=== PATIENT | female | born 1970 | race Caucasian/White ===

== ENCOUNTER 2024-05-22 13:12 | Inpatient (IN) | payer MEDICAID ==
[~2024-05-22] VITALS: Ht 165.1 cm; Wt 70.0 kg
[~2024-05-22 13:12] MED LIST: BIRTH CONTROL; LEVO50TA53; SERT100T
--- NOTE | 2024-05-22 13:17 | ED.PDOC ---
Sven. trauma (HPI) HPI Comments 53 year old female REMBERTO presents to the ED with chief complaint of syncope with fall. Patient reports that she had went to go to the bathroom at work, however, she started to feel lightheaded and next thing she knew, she woke up on the floor. EMS relays patient had lost consciousness and fell face first, injuring her forehead and causing a laceration. Patient states she currently has a headache and dizziness at this time. Patient denies any N/V, SOB, chest pain, numbness, or weakness. Time Seen by MD: 13:13 Primary Care Provider: MANN Reviewed notes: Nurses Notes, Clinical Science Liaison Notes, Medications, Allergies Allergies: Coded Allergies: NO KNOWN ALLERGIES (Unverified , 11/15/09) Home Meds Reported Medications [ Control] No Conflict Check 11/15/09 Sertraline Hcl (Zoloft) 100 Mg Tab 11/15/09 Levothyroxine Sodium (Levothroid) 50 Mcg Tab 11/15/09 Information Source: Patient, Emergency Med Personnel Mode of Arrival: EMS Severity: Moderate Timing: Hours Duration: Since onset Prehospital treatment: None Location: Head Location of laceration: Head Mechanism: Fall Past Medical History PAST MEDICAL HISTORY: Depression, Thyroid Surgical History: Tonsillectomy 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 TESTER MECHANIC Hx Family History Family History: Reviewed,noncontributory to illness Social History Smoker: Non-Smoker Alcohol: Denies ETOH Use Drugs: Denies Drug Use Lives In: Home Constitutional: denies: chills, diaphoresis, fatigue, fever, malaise, sweats, weakness, others EENTM: denies: blurred vision, double vision, ear bleeding, ear discharge, ear drainage, ear pain, ear ringing, eye pain, eye redness, hearing loss, mouth pain, mouth swelling, nasal discharge, nose bleeding, nose congestion, nose pain, photophobia, tearing, throat pain, throat swelling, voice changes, others Respiratory: denies: cough, hemoptysis, orthopnea, SOB at rest, shortness of breath, SOB with excertion, stridor, wheezing, others Cardiovascular: reports: lightheadedness, syncope; denies: chest pain, dizzy spells, diaphoresis, Dyspnea on exertion, edema, irregular heart beat, left arm pain, palpitations, PND, others Gastrointestinal: denies: abdomen distended, abdominal pain, blood streaked bowels, constipated, diarrhea, dysphagia, difficulty swallowing, hematemesis, melena, nausea, poor appetite, poor fluid intake, rectal bleeding, rectal pain, vomiting, others Genitourinary: denies: abnormal vagina bleeding, burning, dyspareunia, dysuria, flank pain, frequency, hematuria, incontinence, pain, , vagina discharge, urgency, others Neurological: reports: dizziness, headache; denies: fainting, left sided numbness, left sided weakness, numbness, paresthesia, pre-existing deficit, right sided numbness, right sided weakness, seizure, speech problems, tingling, tremors, weakness, others Musculoskeletal: denies: back pain, gout, joint pain, joint swelling, muscle pain, muscle stiffness, neck pain, others Integumetry: reports: laceration (forehead); denies: bruises, change in color, change in hair/nails, dryness, lesions, lumps, rash, wounds, others Allergic/Immunocompromised: denies: Difficulty Healing, Frequent Infections, Hives, Itching, others Hematologic/Lymphatic: denies: anemia, blood clots, easy bleeding, easy bruising, swollen glands, others Endocrine: denies: excessive hunger, excessive sweating, excessive thirst, excessive urination, flushing, intolerance to cold, intolerance to heat, unexplained weight gain, unexplained weight loss, others Psychiatric: denies: anxiety, bipolar disorder, depression, hopeless, panic disorder, schizophrenia, sleepless, suicidal, others All Other Systems: Reviewed and Negative Physical Exam General Appearance: Moderate Distress, Normal HEENT: Normal ENT Inspection, PERRL/EOMI Neck: Full Range of Motion, Non-Tender, Normal, Normal Inspection Respiratory: Chest Non-Tender, Lungs Clear, No Accessory Muscle Use, No Respiratory Distress, Normal Breath Sounds Cardiovascular: No Edema, No JVD, No Murmur, No Gallop, Normal Peripheral Pulses, Regular Rate/Rhythm Breast Exam: Deferred Gastrointestinal: No Organomegaly, Non Tender, No Pulsatile Mass, Normal Bowel Sounds, Soft Genitalia: Deferred Pelvic: Deferred Rectal: Deferred Extremities: No calf tenderness, Normal capillary refill, Normal inspection, Normal range of motion, Non-tender, No pedal edema Musculoskeletal : Apperance: Normal Neurologic: Alert, 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 Was a procedure done?: No Differential Diagnosis Multiple Trauma: Closed Head Injury, Abrasions X-Ray, Labs, Meds, VS Vital Signs Date Time Temp Pulse Resp B/P (MAP) Pulse Ox O2 Delivery O2 Flow Rate FiO2 05/22/24 15:20 77 18 100 Room Air 05/22/24 15:20 98.7 77 16 142/105 (117) 100 98.7 05/22/24 13:20 67 05/22/24 13:12 97.9 78 12 127/76 (93) 100 Lab Test 05/22/24 14:10 Range/Units White Blood Count 2.5 L 4.4-10.8 10^3/uL Red Blood Count 3.85 L 4.0-5.20 10^6/uL Hemoglobin 11.0 L 12.2-16.2 g/dL Hematocrit 33.2 L 36.0-46.0 % Mean Corpuscular Volume 86.2 80.0-100.0 fL Mean Corpuscular Hemoglobin 28.5 28.0-32.0 pg Mean Corpuscular Hemoglobin Concent 33.0 32.0-36.0 g/dL Red Cell Distribution Width 14.8 H 11.8-14.3 % Platelet Count 136 L 140-450 10^3/uL Mean Platelet Volume 8.9 6.9-10.8 fL Neutrophils (%) (Auto) 64.3 37.0-80.0 % Lymphocytes (%) (Auto) 18.0 10.0-50.0 % Monocytes (%) (Auto) 17.0 H 0.0-12.0 % Eosinophils (%) (Auto) 0.3 0.0-7.0 % Basophils (%) (Auto) 0.4 0.0-2.0 % Neutrophils # (Auto) 1.6 1.6-8.6 10 ^3/uL Lymphocytes # (Auto) 0.5 0.4-5.4 10 ^3/uL Monocytes # (Auto) 0.4 0-1.3 10 ^3/uL Eosinophils # (Auto) 0 0-0.8 10 ^3/uL Basophils # (Auto) 0 0-0.2 10 ^3/uL Nucleated Red Blood Cells 0.3 % Sodium Level 139 136-145 mmol/L Potassium Level 3.6 3.5-5.1 mmol/L Chloride Level 105 98-107 mmol/L Carbon Dioxide Level 26 20-31 mmol/L Anion Gap 8 5-15 Blood Urea Nitrogen 6 L 9-23 mg/dL Creatinine 0.88 0.550-1.02 mg/dL Glomerular Filtration Rate Calc 79 >90 mL/min BUN/Creatinine Ratio 6.8 L 10.0-20.0 Serum Glucose 102 74-106 mg/dL Calcium Level 9.1 8.7-10.4 mg/dL Troponin I High Sensitivity < 3 L </=34 ng/L Current Medications Medications (Trade) Dose Ordered Sig/Rubio Route Start Time Stop Time Status Last Admin Sodium Chloride 1,000 ml @ 1,000 mls/hr Q1H ONCE IV 05/22/24 13:15 05/22/24 14:14 DC 05/22/24 13:44 CT Head: FINDINGS: There is no evidence of acute intracranial hemorrhage, mass, mass effect midline shift. There is no hydrocephalus or extra-axial fluid collection. Hebert-white matter differentiation is maintained. The visualized paranasal sinuses and mastoid air cells are clear. The calvarium is intact. IMPRESSION: 1. No acute intracranial process. Patient alert. Syncope. Fell on her head. Vitals stable. Answering questions. Does not remember the event. CT of the head reviewed does not show any acute process. Reviewed her history pain Establish intravenous access. Was given fluids pain Explained to the patient. Continue cardiac monitoring. Images Reviewed?: Images reviewed and evaluated by me Time of 1ST Reevaluation: 14:13 Reevaluation 1ST: Unchanged Patient Education/Counseling: Diagnosis, Treatment Family Education/Counseling: No Family Present Additional Information The following tests were ordered, and results were reviewed by me: Head CT, EKG, CBC, BMP, UA, Troponin Additional Information was gathered from interviewing the following independent historians: EMT I reviewed and agreed with the following test results read by other providers: CT Head I discussed treatment and results with medical personnel. Departure 1 Departure Time of Disposition: 15:58 Impression: Primary Impression: Head injury Qualified Codes: S09.90XA - Unspecified injury of head, initial encounter Additional Impression: Syncope Qualified Codes: R55 - Syncope and collapse Disposition: ADMITTED INPATIENT Admit to: Med Surg Condition: Guarded Critical Care Note Critical Care Time?: Yes (45 min-critical care time only) Stability Stability form required: No Heart Score Heart Score: Heart Score Response (Comments) Value History N/A 0 EKG N/A 0 Age N/A 0 Risk Factors N/A 0 Troponin N/A 0 Total 0 I personally scribed for KOKI WALSH MD ([email or web address]) on 05/22/24 at 13:16. Electronically submitted by John Borrego ([email or web address]). I personally scribed for KOKI WALSH MD ([email or web address]) on 05/22/24 at 14:17. Electronically submitted by John Borrego ([email or web address]). I personally scribed for KOKI WALSH MD ([email or web address]) on 05/22/24 at 15:32. Electronically submitted by John Borrego ([email or web address]). KOKI WALSH MD May 22, 2024 13:16
[2024-05-22] MEDS: SODIUM CHLORIDE 0.9% 1,000 ML IV ONE (13:44)
--- NOTE | 2024-05-22 14:13 | DVH ---
EXAM: CT HEAD WITHOUT CONTRAST HISTORY: SYNCOPE COMPARISON: None TECHNIQUE: Axial images of the head were obtained and reformatted in coronal and sagittal planes. All CT scans at this medical facility are performed using dose modulation techniques as appropriate t o a performed exam including the following: Automated exposure control was utilized; adjustment of th e MA and/or KV according to patient size; and use of iterative reconstruction technique. CT Dose: CTDI volume is 54 mGy. Dose-length product is 755 mGy*cm FINDINGS: There is no evidence of acute intracranial hemorrhage, mass, mass effect midline shift. There is no h ydrocephalus or extra-axial fluid collection. Hebert-white matter differentiation is maintained. The visualized paranasal sinuses and mastoid air cells are clear. The calvarium is intact. IMPRESSION: 1. No acute intracranial process. HS:Y
[2024-05-22 14:28] LABS: Basophils # (auto) 0 10 ^3/uL (0-0.2); Basophils % (auto) 0.4 % (0.0-2.0); Eosinophils # (auto) 0 10 ^3/uL (0-0.8); Eosinophils % (auto) 0.3 % (0.0-7.0); Hematocrit 33.2 % (36.0-46.0); Lymphocytes # (auto) 0.5 10 ^3/uL (0.4-5.4); Mean Corpuscular Hemoglobin 28.5 pg (28.0-32.0); Mean Corpuscular Volume 86.2 fL (80.0-100.0); Monocytes # (auto) 0.4 10 ^3/uL (0-1.3); Neutrophils # (auto) 1.6 10 ^3/uL (1.6-8.6); Neutrophils % (auto) 64.3 % (37.0-80.0); Nucleated Red Blood Cells % 0.3 %; Platelet Count (auto) 136 10^3/uL (140-450); Red Blood Cells 3.85 10^6/uL (4.0-5.20); Red Cell Distribution Width 14.8 % (11.8-14.3); White Blood Cell 2.5 10^3/uL (4.4-10.8)
[2024-05-22 14:35] LABS: Chloride 105 mmol/L (98-107); Potassium 3.6 mmol/L (3.5-5.1); Sodium 139 mmol/L (136-145)
[2024-05-22 14:36] LABS: Anion Gap 8 (5-15); Calcium 9.1 mg/dL (8.7-10.4); Carbon Dioxide 26 mmol/L (20-31)
[2024-05-22 14:41] LABS: BUN/Creatinine Ratio 6.8 (10.0-20.0); Glucose 102 mg/dL (74-106)
[2024-05-22 14:42] LABS: Blood Urea Nitrogen 6 mg/dL (9-23)
[2024-05-22] MEDS ORDERED: ONDANSETRON HCL 4 MG/2 ML VIAL IV PRN (17:00)
[2024-05-22] MEDS ORDERED: NITROGLYCERIN 0.4 MG SL TAB SL PRN (17:00)
[2024-05-22] MEDS ORDERED: MORPHINE SULFATE INJ 2 MG/ml SYRG IV PRN (17:00)
[2024-05-22] MEDS ORDERED: THYR30TA PO (17:09)
--- NOTE | 2024-05-22 17:28 | DVHHP2 ---
History of Present Illness Reason for Visit: Syncope Review of Systems Constitutional: No: Fever, Chills, Sweats, Weakness, Malaise, Other Eyes: No: Pain, Vision change, Conjunctivae inflammation, Eyelid inflammation, Other, Redness ENT: No: Ear pain, Ear discharge, Nose pain, Nose discharge, Nose congestion, Mouth pain, Mouth swelling, Throat pain, Throat swelling, Other Respiratory: No: Cough, Dry, Shortness of breath, SOB with excertion, Wheezing, Hemoptysis, Pleuritic Pain, Sputum, Wheezing, Other Cardiovascular: No: Chest Pain, Palpitations, Orthopnea, Paroxysmal Noc. Dyspnea, Edema, Lt Headedness, Other Gastrointestinal: No: Nausea, Vomiting, Abdominal Pain, Diarrhea, Constipation, Melena, Hematochezia, Other Genitourinary: No Dysuria, No Frequency, No Incontinence, No Hematuria, No Retention, No Other Musculoskeletal: No: other, neck pain, shoulder pain, arm pain, back pain, hand pain, leg pain, foot pain Skin: No: Rash, Lesions, Jaundice, Bruising, Other Neurological: Other (Syncopal episode); No: Weakness, Numbness, Incoordination, Change in speech, Confusion, Seizures Allergies: Coded Allergies: NO KNOWN ALLERGIES (Unverified , 11/15/09) Medications Current Medications Medications Dose Ordered Sig/Rubio Route Start Time Stop Time Status Last Admin Dose Admin Acetaminophen/ Hydrocodone Bitart 1 tab Q4HP PRN PO 05/22/24 17:00 UNV Ondansetron HCl 4 mg Q4HP PRN IV 05/22/24 17:00 UNV Docusate Sodium 100 mg BIDPRN PRN PO 05/22/24 17:00 UNV Acetaminophen 650 mg Q6HP PRN PO 05/22/24 17:00 UNV Nitroglycerin 0.4 mg Q5MINP PRN SL 05/22/24 17:00 UNV Morphine Sulfate 2 mg Q30M PRN IV 05/22/24 17:00 UNV Patient Own Medication 1 tab DAILY PO 05/23/24 10:00 UNV Exam Vital Signs Vital Signs Date Time Temp Pulse Resp B/P (MAP) Pulse Ox O2 Delivery O2 Flow Rate FiO2 05/22/24 15:20 77 18 100 Room Air 05/22/24 15:20 98.7 142/105 (117) 98.7 General Appearance: Alert, Oriented X3, Cooperative HEENT: Atraumatic, PERRLA Respiratory: Clear to auscultation, Normal air movement Cardiovascular: Regular rate, Normal S1, Normal S2 Abdominal: Normal bowel sounds, Soft, No tenderness Extremities: No clubbing, No cyanosis, No edema, Normal pulses Skin: No rashes, No breakdown, No significant lesion Neuro: Normal gait, Normal speech, Strength at 5/5 X4 ext Psych/Mental Status: Mental status NL, Mood NL Labs/Xrays Labs Test 05/22/24 14:10 Range/Units White Blood Count 2.5 L 4.4-10.8 10^3/uL Red Blood Count 3.85 L 4.0-5.20 10^6/uL Hemoglobin 11.0 L 12.2-16.2 g/dL Hematocrit 33.2 L 36.0-46.0 % Mean Corpuscular Volume 86.2 80.0-100.0 fL Mean Corpuscular Hemoglobin 28.5 28.0-32.0 pg Mean Corpuscular Hemoglobin Concent 33.0 32.0-36.0 g/dL Red Cell Distribution Width 14.8 H 11.8-14.3 % Platelet Count 136 L 140-450 10^3/uL Mean Platelet Volume 8.9 6.9-10.8 fL Neutrophils (%) (Auto) 64.3 37.0-80.0 % Lymphocytes (%) (Auto) 18.0 10.0-50.0 % Monocytes (%) (Auto) 17.0 H 0.0-12.0 % Eosinophils (%) (Auto) 0.3 0.0-7.0 % Basophils (%) (Auto) 0.4 0.0-2.0 % Neutrophils # (Auto) 1.6 1.6-8.6 10 ^3/uL Lymphocytes # (Auto) 0.5 0.4-5.4 10 ^3/uL Monocytes # (Auto) 0.4 0-1.3 10 ^3/uL Eosinophils # (Auto) 0 0-0.8 10 ^3/uL Basophils # (Auto) 0 0-0.2 10 ^3/uL Nucleated Red Blood Cells 0.3 % Sodium Level 139 136-145 mmol/L Potassium Level 3.6 3.5-5.1 mmol/L Chloride Level 105 98-107 mmol/L Carbon Dioxide Level 26 20-31 mmol/L Anion Gap 8 5-15 Blood Urea Nitrogen 6 L 9-23 mg/dL Creatinine 0.88 0.550-1.02 mg/dL Glomerular Filtration Rate Calc 79 >90 mL/min BUN/Creatinine Ratio 6.8 L 10.0-20.0 Serum Glucose 102 74-106 mg/dL Calcium Level 9.1 8.7-10.4 mg/dL Troponin I High Sensitivity < 3 L </=34 ng/L EXAM: CT HEAD WITHOUT CONTRAST HISTORY: SYNCOPE FINDINGS: There is no evidence of acute intracranial hemorrhage, mass, mass effect midline shift. There is no hydrocephalus or extra-axial fluid collection. Hebert-white matter differentiation is maintained. The visualized paranasal sinuses and mastoid air cells are clear. The calvarium is intact. IMPRESSION: 1. No acute intracranial process. Assessment/Plan Assessment/Plan Assessment: Syncope, Hypothyroidism, Plan: Admit to Tele, Cardiology consul, ECHO, Carotid duplex bilateral, Continuous cardiac monitoring, TSH, Fall risk, Home medications reconciled, Plan discussed with: Patient My Orders Orders - EVAN HOOKER Procedure Category Date Status Time Admit ADMIT 05/22/24 Transmitted 16:52 Code Status CODE 05/22/24 Transmitted 16:52 Hydrocodone-Acet PHA 05/22/24 Logged 5/325mg Tab (Anthony 17:00 Ondansetron Hcl PHA 05/22/24 Logged (Zofran) 17:00 Docusate Sodium PHA 05/22/24 Logged Capsule (Colace 17:00 Fall Risk Precautions MELISSA 05/22/[address] 16:52 Complete Blood Count LAB 05/23/24 Verified 04:00 Comprehensive LAB 05/23/24 Verified Metabolic Panel 04:00 Echo 2d Mode Cardiac US 05/22/24 Logged DOP 16:52 Carotid Duplx W Color US 05/22/24 Logged DOP 16:52 Condition: Serious MELISSA 05/22/24 In Process 16:52 Acetaminophen Tablet PHA 05/22/24 Logged (Tylenol Tablet) 17:00 Nitroglycerin PHA 05/22/24 Logged Sublingual (Ntrostat 17:00 Morphine Sulfate PHA 05/22/24 Logged Injection 17:00 Stat Ekg For Chest MELISSA 05/22/24 In Process Pain 16:52 Notify Of Changes MELISSA 05/22/24 In Process From Base 16:52 Polygraph Operator For [facility] 05/22/24 In Process 24 Hours 16:52 Emergency Dysrhythmia [facility] 05/22/24 In Process Protocol 16:52 Rhythm Strips Once [facility] 05/22/24 In Process Every Shift 16:52 Oxygen By Nasal RT 05/22/24 Transmitted Cannula 16:52 * Cardiology Consult CONS 05/22/24 Transmitted 16:52 Regular Diet DIET 05/22/24 Transmitted Dinner Thyroid Stimulating LAB 05/22/24 Logged Hormone 17:04 (Nf) Thyroid ([place] PHA 05/23/24 Logged Thyroid) 10:00 Date of Service: May 22, 2024 Billing Provider: EVAN HOOKER Common Visit Codes: [id number] INP/OBS CARE (MOD) EVAN HOOKER May 22, 2024 17:28
--- NOTE | 2024-05-22 17:40 | DVH ---
Carotid Duplex Date: 05/22/2024 05:13 PM Clinical History: Syncope Comparison: None Technique: Duplex Doppler evaluation of the extracranial carotid and vertebral arteries including color Doppler and spectral/pulsed waveform analysis was performed. Findings: RIGHT SIDE: The peak systolic velocities are 76 cm/s in the distal CCA and 68 cm/s in the proximal ICA.The ICA/CC A ratio is less than 1. The external carotid artery is patent with peak systolic velocity of 97 cm/s proximally. There is appropriate antegrade flow in the right vertebral artery. LEFT SIDE: The peak systolic velocities are 66 cm/s in the distal CCA and 98 cm/s in the proximal ICA.. The ICA /CCA ratio is less than 2. The external carotid artery is patent with peak systolic velocity of 71 cm/s proximally. There is appropriate antegrade flow in the left vertebral artery. IMPRESSION: 1. No hemodynamically significant stenosis noted in the right carotid system. 2. No hemodynamically significant stenosis noted in the left carotid system. 3. Reference: Radiology 2003; 229:[id number] HS:Y
[2024-05-23] VITALS (8 sets, daily range): BP systolic 100–124; BP diastolic 58–73; PULSE 71–101; RESP 18–20; TEMP 97.6–98.7; O2SAT 93–100
[2024-05-23 00:34] LABS: Urine Bacteria FEW /hpf (None Seen); Urine Blood Negative /uL (Negative); Urine Budding Yeast OCCASIONAL /hpf (None Seen); Urine Clarity Turbid (Clear); Urine Color STRAW (Yellow); Urine Protein, UAD Negative (Negative); Urine Specific Gravity 1.012 (1.001-1.035); Urine Urobilinogen Normal (Negative); Urine WBC 47 /hpf (0 - 5); Urine pH 6.5 (5.0-9.0)
[2024-05-23 06:01] LABS: Basophils # (auto) 0 10 ^3/uL (0-0.2); Basophils % (auto) 0.5 % (0.0-2.0); Eosinophils # (auto) 0 10 ^3/uL (0-0.8); Eosinophils % (auto) 0.9 % (0.0-7.0); Hematocrit 30.9 % (36.0-46.0); Hemoglobin 10.2 g/dL (12.2-16.2); Lymphocytes % (auto) 30.4 % (10.0-50.0); Mean Corpuscular Hemoglobin 28.2 pg (28.0-32.0); Mean Corpuscular Hgb Conc. 32.8 g/dL (32.0-36.0); Mean Corpuscular Volume 85.8 fL (80.0-100.0); Monocytes # (auto) 0.5 10 ^3/uL (0-1.3); Neutrophils # (auto) 1.8 10 ^3/uL (1.6-8.6); Neutrophils % (auto) 54.2 % (37.0-80.0); Nucleated Red Blood Cells % 0.1 %; Platelet Count (auto) 132 10^3/uL (140-450); Red Blood Cells 3.61 10^6/uL (4.0-5.20); White Blood Cell 3.3 10^3/uL (4.4-10.8)
[2024-05-23 06:16] LABS: Alanine Aminotransferase 36 U/L (7-40); Albumin 3.7 g/dL (3.2-4.8); Anion Gap 7 (5-15); BUN/Creatinine Ratio 6.5 (10.0-20.0); Bilirubin, Total 0.3 mg/dL (0.2-1.0); Calcium 9.1 mg/dL (8.7-10.4); Carbon Dioxide 25 mmol/L (20-31); Potassium 3.8 mmol/L (3.5-5.1); Sodium 140 mmol/L (136-145); Total Protein 5.8 g/dL (5.7-8.2)
[2024-05-23 06:30] LABS: Alkaline Phosphatase 148 U/L (46-116); Aspartate Aminotransferase 51 U/L (13-40); Blood Urea Nitrogen 6 mg/dL (9-23); Chloride 108 mmol/L (98-107); Glucose 125 mg/dL (74-106)
[2024-05-23] MEDS ORDERED: LEVOTHYROXINE SODIUM 50 MCG TAB PO SCH (10:00)
--- NOTE | 2024-05-23 11:19 | DVHPN2 ---
Subjective states woke up with bad cold yesterday and took pseudofed in empty stomach and later some alana wade and then this happened at work Changes from previous H/P or p: No Changes Eyes: No Pain, No Vision change, No Conjunctivae inflammation, No Eyelid inflammation, No Other, No Redness ENT: No Ear pain, No Ear discharge, No Nose pain, No Nose discharge, No Nose congestion, No Mouth pain, No Mouth swelling, No Throat pain, No Throat swelling, No Other Cardiovascular: No Chest Pain, No Palpitations, No Orthopnea, No Paroxysmal Noc. Dyspnea, No Edema, No Lt Headedness, No Other Respiratory: No Cough, No Dry, No Shortness of breath, No SOB with excertion, No Wheezing, No Hemoptysis, No Pleuritic Pain, No Sputum, No Other Gastrointestinal: No Nausea, No Vomiting, No Abdominal Pain, No Diarrhea, No Constipation, No Melena, No Hematochezia, No Other Genitourinary: No Dysuria, No Frequency, No Incontinence, No Hematuria, No Retention, No Other Musculoskeletal: No other, No neck pain, No shoulder pain, No arm pain, No back pain, No hand pain, No leg pain, No foot pain Skin: No Rash, No Lesions, No Jaundice, No Bruising, No Other Objective Vitals Vital Signs Date Time Temp Pulse Resp B/P (MAP) Pulse Ox O2 Delivery O2 Flow Rate FiO2 05/23/24 09:00 98.3 73 19 102/58 (73) 97 98.3 05/23/24 01:00 Room Air* 0 21 Intake/Output Intake and Output 05/23/24 07:00 Intake Total 600 ml Balance 600 ml Intake Oral 600 ml # Voids 3 General Appearance: Alert, Oriented X3, Cooperative, No acute distress HEENT: Other (bruising in cheeks/lacerations nasal bridge) Lungs: Clear to auscultation Cardiovascular: Regular rate, Normal S1, Normal S2 Abdomen: Normal bowel sounds, Soft, No tenderness, No hepatospenomegaly Musculoskeletal: Normal sensory function, Normal motor function Neuro: Normal gait, Normal speech, Strength at 5/5 X4 ext, Normal tone, S ensation intact, Cranial nerves 3-12 NL Psych/Mental Status: Mental status NL Medications Current Medications Medications Dose Ordered Sig/Rubio Route Start Time Stop Time Status Last Admin Dose Admin Acetaminophen/ Hydrocodone Bitart 1 tab Q4HP PRN PO 05/22/24 17:00 Ondansetron HCl 4 mg Q4HP PRN IV 05/22/24 17:00 Docusate Sodium 100 mg BIDPRN PRN PO 05/22/24 17:00 Acetaminophen 650 mg Q6HP PRN PO 05/22/24 17:00 Nitroglycerin 0.4 mg Q5MINP PRN SL 05/22/24 17:00 Morphine Sulfate 2 mg Q30M PRN IV 05/22/24 17:00 Thyroid 30 mg DAILY PO 05/23/24 10:00 Laboratory Results Laboratory Tests 05/23/24 05:12 Chemistry Test 05/22/24 14:10 05/23/24 05:12 Calcium Level 9.1 mg/dL (8.7-10.4) 9.1 mg/dL (8.7-10.4) Albumin 3.7 g/dL (3.2-4.8) Magnesium Level 1.9 mg/dL (1.6-2.6) Total Protein 5.8 g/dL (5.7-8.2) LFT Test 05/23/24 05:12 Alanine Aminotransferase (ALT) 36 U/L (7-40) Alkaline Phosphatase 148 U/L (46-116) H Aspartate Amino Transferase (AST) 51 U/L (13-40) H Total Bilirubin 0.3 mg/dL (0.2-1.0) HgA1c, TSH Test 05/22/24 14:10 05/23/24 05:12 Thyroid Stimulating Hormone (TSH) 5.45 uIU/mL (0.55-4.78) H Hemoglobin A1c Pending Urinalysis Test 05/22/24 23:50 Urine Color Straw (Yellow) Urine Clarity Turbid (Clear) H Urine pH 6.5 (5.0-9.0) Urine Specific [place] 1.012 (1.001-1.035) Urine Protein Negative (Negative) Urine Ketones Trace (Negative) Urine Blood Negative /uL (Negative) Urine Nitrite 2+ (Negative) H Urine Bilirubin Negative (Negative) Urine Urobilinogen Normal mg/dL (Negative) Urine Leukocyte Esterase 3+ /uL (Negative) Urine RBC <1 /hpf (0 - 4) Urine WBC 47 /hpf (0 - 5) Urine Squamous Epithelial Cells Few /hpf (<5) Urine Bacteria Few /hpf (None Seen) H Urine Yeast (Budding) Occasional /hpf (None Urine Glucose Normal mg/dL (Normal) Labs and/or images reviewed: Labs reviewed by me, Image(s) reviewed by me Assessment/Plan Assessment/Plan syncope- secondary to meds/viral illness/r/o arrythmia- monitor/echo pending facial trauma evaluate uti treat/had cysto last year/f/by urology/ hypothyroidism-treat Plan discussed with: Patient My Orders Orders - ASHISH BOWEN MD Procedure Category Date Status Time Ceftriaxone 1gm/50ml PHA 05/23/24 Logged D5w (Rocephin) 11:15 Ceftriaxone 1gm/50ml PHA 05/24/24 Logged D5w (Rocephin) 09:00 Urine Bacterial JANEEN 05/23/24 Transmitted Culture 11:[address] 05/23/24 Transmitted 11:08 Drug Screen LAB 05/23/24 Verified 11:12 Date of Service: May 23, 2024 Billing Provider: ASHISH BOWEN MD Common Visit Codes: [id number] INP/OBS CARE(MOD) ASHISH BOWEN MD May 23, 2024 11:19
[2024-05-23] MEDS: cefTRIAXone 1GM/50ML D5W 50 ML IV ONE (12:15)
[2024-05-23] MEDS: THYROID 60 MG TAB PO SCH (12:28)
[2024-05-23 12:31] LABS: Amphetamine Screen, Urine Neg (NEGATIVE); Barbiturate Scree,Urine Neg (NEGATIVE); Benzodiazephine Screen, Urine Neg (NEGATIVE); Cannabinoid Screen, Urine Neg (NEGATIVE); Cocaine Screen, Urine Neg (NEGATIVE); Opiate Scree,Urine Neg (NEGATIVE); Phencyclidine Screen, Urine Neg (NEGATIVE)
--- NOTE | 2024-05-23 13:25 | DVH ---
HISTORY: s/p fall/ mild nose bleed TECHNIQUE: Nonenhanced axial images through the facial bones with coronal and sagittal MPR. Radiation Dose Information: CT Dose: CTDI volume is 62.5 mGy. Dose-length product is 1210.78 mGy*cm FINDINGS: Mandible: normal Maxilla: normal Pterygoid plates: normal Zygomatic processes: normal. Zygomatic arches: normal Orbits: normal Sinuses: normal Facial swelling: Bilateral acute displaced nasal fractures with soft tissue swelling and foci of air , likely secondary to traumatic injury. IMPRESSION: Bilateral acute displaced nasal fractures with soft tissue swelling and foci of air, likely secondary to traumatic injury. Radiation optimization: All CT scans at this facility use at least one of these dose optimization zahra hniques: automated exposure control mA and/or kV adjustment per patient size (includes targeted exam s where dose is matched to clinical indication) or iterative reconstruction.
--- NOTE | 2024-05-23 13:46 | ECG ---
[facility] Test Date: 2024-05-22 Test Time: 13:20:07 Pat Name: VANESSA BLACK Department: ED Room: [address] [place] [address] 4 Gender: F [employer] Services Manager: TIERA : 1970 Requested By: KOKI WALSH Order Number: [id number] Reading MD: Mick Barnard Measurements Intervals [place] Rate: 67 P: 129 VT: 213 QRS: 73 QRSD: 86 T: 76 QT: 392 QTc: 414 Interpretive Statements Sinus rhythm Prolonged VT interval Electronically Signed On 05-23-2024 16:46:43 PST by Mick Barnard Please click the below link to view image of tracing.
--- NOTE | 2024-05-23 15:41 | DVHCONRES ---
Date Seen: May 23, 2024 Resident Creating Document: FELIX PEREZ RESIDENT Referring Physician Tonya rodas NP History of Present Illness This is a 53-year-old female with a past medical history of Mena's disease presented to the ED after sustaining a fall on a concrete ground 05/22/2024. According to the patient, she woke up yesterday morning feeling very unwell took Sudafed felt a little better and took another before going to work. 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 After her morning shift, patient took the bus to a mechanical shop. She walked towards the restroom. Whilst about to open the door she was noted to have lowered her head and fell to the ground. Patient did not know how long she stayed on the ground. Eye witnessed saw her called 911 and informed her . Patient denied any chest pain, palpitations, shortness of breath prior to the fall. In the ED,vitals were grossly unremarkable other than the BP being 145/105. Blood work showed wbc 2.5-> 3.3, hgb: 11--> 10.2, plt: 136--> 132; UA is positive for UTI, Troponin < 3 and TSH: 5.45, Toxicology screen negative. Imaging showed: Maxilofacial CT: bilateral acute displaced nasal fractures with soft tissue swelling and foci of air, likely secondary to traumatic injury.CT head: Bilateral acute displaced nasal fractures with soft tissue swelling and foci of air, likely secondary to traumatic injury; and carotid doppler: No hemodynamically significant stenosis noted in the left carotid system. Past Medical History Mena's disease Past Surgical History Tonsillectomy Three C-sections Family History: Patient reports no known family medical history. Family History Sick sinus syndrome in the grandmother Allergies: Coded Allergies: NO KNOWN ALLERGIES (Unverified , 11/15/09) Home Meds Reported Medications Thyroid (Rawlings Thyroid) 30 Mg Tab, 1 TAB PO DAILY 05/22/24 Discontinued Reported Medications [ Control] No Conflict Check 11/15/09 Sertraline Hcl (Zoloft) 100 Mg Tab 11/15/09 Levothyroxine Sodium (Levothroid) 50 Mcg Tab 11/15/09 Current Medications Current Medications Medications (Trade) Dose Ordered Sig/Rubio Route PRN Reason Start Time Stop Time Status Last Admin Acetaminophen/ Hydrocodone Bitart ([place] 5/325MG Tab) 1 tab Q4HP PRN PO MODERATE PAIN (4-6 PAIN SCALE) 05/22/24 17:00 Ondansetron HCl (Zofran) 4 mg Q4HP PRN IV NAUSEA / VOMITING 05/22/24 17:00 05/23/24 11:13 DC Docusate Sodium (Colace Capsule) 100 mg BIDPRN PRN PO FOR CONSTIPATION 05/22/24 17:00 Acetaminophen (Tylenol Tablet) 650 mg Q6HP PRN PO PAIN SCALE 1-3 OR TEMP>100.4 05/22/24 17:00 Nitroglycerin (Ntrostat Sublingual) 0.4 mg Q5MINP PRN SL FOR CHEST PAIN 05/22/24 17:00 05/23/24 11:13 DC Morphine Sulfate 2 mg Q30M PRN IV FOR CHEST PAIN 05/22/24 17:00 05/23/24 11:13 DC Levothyroxine Sodium (Synthroid Tablet) 50 mcg DAILY PO 05/23/24 10:00 05/22/24 17:09 DC Thyroid (Rawlings Thyroid) 30 mg DAILY PO 05/23/24 10:00 05/23/24 12:28 Ceftriaxone Sodium 50 ml @ 100 mls/hr DAILY@09 IV 05/24/24 09:00 Review of Systems Constitutional: Denies fever no chills no feeling of malaise HEENT: Mild headache, periorbital redness/hematoma, scratch on her forehead, nasal discharge throat pain Cardiovascular: Denies chest pain, palpitation, orthopnea, PND, or pedal edema Respiratory: Denies shortness of breath, cough cough, sputum production, hemoptysis, GI: Denies abdominal pain, nausea, vomiting, diarrhea, hematemesis, hematochezia, : Denies frequency, urgency, hematuria, Endocrine: Denies unintentional weight gain or weight loss, feeling of hot flashes, Joe: Denies easy bruising, bleeding disorders, epistaxis Musculoskeletal: Joint pains, muscle aches Psych: No evidence of depression, wily, suicidal ideation Vital Signs Vital Signs Date Time Temp Pulse Resp B/P (MAP) Pulse Ox O2 Delivery O2 Flow Rate FiO2 05/23/24 13:00 98.5 71 19 122/66 (84) 98 98.5 05/23/24 08:00 Room Air* 0 21 Physical Exam General examination- Not in acute distress HEENT: periorbital swelling, possible hematoma, extraocular muscle movement intact Chest: S1-S2 audible, rate and rhythm regular, no murmur Lung: CTAB, no wheeze or rhonchi Abdomen: Nondistend, BS+, nontenderness, no organomegaly Musculoskeletal: left knee tenderness Lower extremity: no leg edema Neurological: cranial nerves intact, no acute dysarthria or dysphagia Psychiatry-- Normal mood and affect Skin- no acute rash or purpura Labs/Diagnostic Data Labs Test 05/23/24 05:12 05/22/24 23:50 05/22/24 14:10 Range/Units White Blood Count 3.3 #L 4.4-10.8 10^3/uL Red Blood Count 3.61 L 4.0-5.20 10^6/uL Hemoglobin 10.2 L 12.2-16.2 g/dL Hematocrit 30.9 L 36.0-46.0 % Mean Corpuscular Volume 85.8 80.0-100.0 fL Mean Corpuscular Hemoglobin 28.2 28.0-32.0 pg Mean Corpuscular Hemoglobin Concent 32.8 32.0-36.0 g/dL Red Cell Distribution Width 15.0 H 11.8-14.3 % Platelet Count 132 L 140-450 10^3/uL Mean Platelet Volume 9.6 6.9-10.8 fL Neutrophils (%) (Auto) 54.2 37.0-80.0 % Lymphocytes (%) (Auto) 30.4 10.0-50.0 % Monocytes (%) (Auto) 14.0 H 0.0-12.0 % Eosinophils (%) (Auto) 0.9 0.0-7.0 % Basophils (%) (Auto) 0.5 0.0-2.0 % Neutrophils # (Auto) 1.8 1.6-8.6 10 ^3/uL Lymphocytes # (Auto) 1.0 0.4-5.4 10 ^3/uL Monocytes # (Auto) 0.5 0-1.3 10 ^3/uL Eosinophils # (Auto) 0 0-0.8 10 ^3/uL Basophils # (Auto) 0 0-0.2 10 ^3/uL Nucleated Red Blood Cells 0.1 % Sodium Level 140 136-145 mmol/L Potassium Level 3.8 3.5-5.1 mmol/L Chloride Level 108 H 98-107 mmol/L Carbon Dioxide Level 25 20-31 mmol/L Anion Gap 7 5-15 Blood Urea Nitrogen 6 L 9-23 mg/dL Creatinine 0.93 0.550-1.02 mg/dL Glomerular Filtration Rate Calc 74 >90 mL/min BUN/Creatinine Ratio 6.5 L 10.0-20.0 Serum Glucose 125 H 74-106 mg/dL Hemoglobin A1c 5.1 <5.7 % A1C Calcium Level 9.1 8.7-10.4 mg/dL Magnesium Level 1.9 1.6-2.6 mg/dL Total Bilirubin 0.3 0.2-1.0 mg/dL Aspartate Amino Transferase (AST) 51 H 13-40 U/L Alanine Aminotransferase (ALT) 36 7-40 U/L Alkaline Phosphatase 148 H 46-116 U/L Total Protein 5.8 5.7-8.2 g/dL Albumin 3.7 3.2-4.8 g/dL Vitamin B12 Level 253 211-911 pg/mL Urine Color Straw Yellow Urine Clarity Turbid H Clear Urine pH 6.5 5.0-9.0 Urine Specific [place] 1.012 1.001-1.035 Urine Protein Negative Negative Urine Ketones Trace Negative Urine Blood Negative Negative /uL Urine Nitrite 2+ H Negative Urine Bilirubin Negative Negative Urine Urobilinogen Normal Negative mg/dL Urine Leukocyte Esterase 3+ Negative /uL Urine RBC <1 0 - 4 /hpf Urine WBC 47 0 - 5 /hpf Urine Squamous Epithelial Cells Few <5 /hpf Urine Bacteria Few H None Seen /hpf Urine Yeast (Budding) Occasional None Seen /hpf Urine Glucose Normal Normal mg/dL Urine Opiates Screen Neg NEGATIVE Urine Fentanyl Screen Neg NEGATIVE Urine Barbiturates Screen Neg NEGATIVE Urine Phencyclidine Screen Neg NEGATIVE Urine Amphetamines Screen Neg NEGATIVE Urine Benzodiazepines Screen Neg NEGATIVE Urine Cocaine Screen Neg NEGATIVE Urine Cannabinoids Screen Neg NEGATIVE Troponin I High Sensitivity < 3 L </=34 ng/L Thyroid Stimulating Hormone (TSH) 5.45 H 0.55-4.78 uIU/mL Assessment Likly Vasovagal syncope --> Ekg shows sinus rhythm with slightly prolong KS interval --> Echo: done, pending report --> CT head: No acute intracranial process. 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 Plan discussed with: Patient, Spouse Visit Coding Cardiology RES Date of Service: May 23, 2024 Billing Provider: DARRIN HEALY MD Cardiology Common Codes: 80089-[id number] INP/OBS CARE (High) Cardiology Consultation Codes: [id number] CONSULT <60MIN FELIX PEREZ RESIDENT May 23, 2024 15:41
--- NOTE | 2024-05-23 19:56 | DVHSR ---
APPROVED REPORT EXAM: Two-dimensional and M-mode echocardiogram with Doppler and color Doppler. Blood Pressure: 100/63 mmHg INDICATION Syncope RISK FACTORS Height: 5'5", Weight: 149 DIMENSIONS LVDd4.3 (3.8-5.7cm)LA (2D)3.8 (1.9-4.0cm)Aortic Root2.8 (2.0-3.7cm) LVDs2.0 (2.5-4.0cm)LA (MM) (1.9-4.0cm)Aortic Cusp Exc1.7 (1.5-2.0cm) EF (%) 80.0 (55-70%)Rt. Atrium3.1 (1.9-4.0cm)Asc. Aorta cm IVSd0.6 (0.7-1.1cm)RV (D) (1.8-2.4cm) PWd0.6 (0.7-1.1cm) Mitral Valve MitralMitral Stenosis E wave1.08m/sMV Mean GR.mmHg A wave0.55m/sMV Peak GR.mmHg E/A ratio2.02D MVAcm2 DECEL [id number] 1/2 Timems Aortic Valve Aortic ValveAortic Stenosis LVOT Diameter2.2 (1.8-2.4cm)Doppler AVAcm2 Pulmonic Valve V20.76m/s Other Information Quality : Technically LimitedRhythm : Technically limited study due to body habitus. Conclusion NORMAL LV EJECTION FRACTION OF 75% NORMAL VALVES NO EFFUSION NORMAL RV FUNCTION
[2024-05-23] MEDS: HYDROcodone-ACET 5/325MG TAB PO PRN (22:18)
[2024-05-24] VITALS (11 sets, daily range): BP systolic 89–140; BP diastolic 52–65; PULSE 55–81; RESP 16–20; TEMP 97.6–98.6; O2SAT 91–100
[2024-05-24 07:19] LABS: Basophils # (auto) 0 10 ^3/uL (0-0.2); Basophils % (auto) 0.8 % (0.0-2.0); Eosinophils # (auto) 0.1 10 ^3/uL (0-0.8); Eosinophils % (auto) 2.2 % (0.0-7.0); Hematocrit 32.7 % (36.0-46.0); Lymphocytes # (auto) 1.5 10 ^3/uL (0.4-5.4); Lymphocytes % (auto) 46.6 % (10.0-50.0); Mean Corpuscular Hemoglobin 28.7 pg (28.0-32.0); Mean Corpuscular Hgb Conc. 33.5 g/dL (32.0-36.0); Mean Corpuscular Volume 85.8 fL (80.0-100.0); Monocytes # (auto) 0.4 10 ^3/uL (0-1.3); Monocytes % (auto) 11.8 % (0.0-12.0); Neutrophils # (auto) 1.2 10 ^3/uL (1.6-8.6); Neutrophils % (auto) 38.6 % (37.0-80.0); Platelet Count (auto) 152 10^3/uL (140-450); Red Blood Cells 3.81 10^6/uL (4.0-5.20); Red Cell Distribution Width 15.2 % (11.8-14.3); White Blood Cell 3.2 10^3/uL (4.4-10.8)
[2024-05-24 07:27] LABS: Anion Gap 6 (5-15); BUN/Creatinine Ratio 9.4 (10.0-20.0); Calcium 9.4 mg/dL (8.7-10.4); Carbon Dioxide 25 mmol/L (20-31); Chloride 107 mmol/L (98-107); Glucose 105 mg/dL (74-106); Potassium 4.2 mmol/L (3.5-5.1); Sodium 138 mmol/L (136-145)
[2024-05-24 07:28] LABS: Albumin 3.9 g/dL (3.2-4.8)
[2024-05-24 07:29] LABS: Total Protein 6.1 g/dL (5.7-8.2)
[2024-05-24 07:30] LABS: Alanine Aminotransferase 44 U/L (7-40); Alkaline Phosphatase 158 U/L (46-116); Aspartate Aminotransferase 48 U/L (13-40); Bilirubin, Total 0.3 mg/dL (0.2-1.0); Blood Urea Nitrogen 9 mg/dL (9-23)
[2024-05-24] MEDS: cefTRIAXone 1GM/50ML D5W 50 ML IV SCH (09:28)
[2024-05-24] MEDS: DOCUSATE SOD 100 MG CAP PO PRN (22:17)
[2024-05-25] VITALS (8 sets, daily range): BP systolic 95–115; BP diastolic 51–65; PULSE 53–67; RESP 16–18; TEMP 98–98.9; O2SAT 96–100
--- NOTE | 2024-05-25 16:58 | DVHPN2 ---
Subjective late entry for 05/24/24 blood from nose has resolved Changes from previous H/P or p: No Changes Eyes: No Pain, No Vision change, No Conjunctivae inflammation, No Eyelid inflammation, No Other, No Redness ENT: No Ear pain, No Ear discharge, No Nose pain, No Nose discharge, No Nose congestion, No Mouth pain, No Mouth swelling, No Throat pain, No Throat swelling, No Other Cardiovascular: No Chest Pain, No Palpitations, No Orthopnea, No Paroxysmal Noc. Dyspnea, No Edema, No Lt Headedness, No Other Respiratory: No Cough, No Dry, No Shortness of breath, No SOB with excertion, No Wheezing, No Hemoptysis, No Pleuritic Pain, No Sputum, No Other Gastrointestinal: No Nausea, No Vomiting, No Abdominal Pain, No Diarrhea, No Constipation, No Melena, No Hematochezia, No Other Genitourinary: No Dysuria, No Frequency, No Incontinence, No Hematuria, No Retention, No Other Musculoskeletal: No other, No neck pain, No shoulder pain, No arm pain, No back pain, No hand pain, No leg pain, No foot pain Skin: No Rash, No Lesions, No Jaundice, No Bruising, No Other Objective Vitals Vital Signs Date Time Temp Pulse Resp B/P (MAP) Pulse Ox O2 Delivery O2 Flow Rate FiO2 05/25/24 16:30 98.8 67 16 96/51 (66) 98 98.8 05/25/24 08:00 Room Air* 0 21 Intake/Output Intake and Output 05/25/24 07:00 Intake Total 1166 ml Balance 1166 ml Intake Oral 1116 ml IV Total 50 ml # Voids 6 General Appearance: Alert, Oriented X3, Cooperative, No acute distress HEENT: Other (bruising in cheeks/lacerations nasal bridge) Lungs: Clear to auscultation Cardiovascular: Regular rate, Normal S1, Normal S2 Abdomen: Normal bowel sounds, Soft, No tenderness, No hepatospenomegaly Musculoskeletal: Normal sensory function, Normal motor function Neuro: Normal gait, Normal speech, Strength at 5/5 X4 ext, Normal tone, S ensation intact, Cranial nerves 3-12 NL Psych/Mental Status: Mental status NL Medications Current Medications Medications Dose Ordered Sig/Rubio Route Start Time Stop Time Status Last Admin Dose Admin Acetaminophen/ Hydrocodone Bitart 1 tab Q4HP PRN PO 05/22/24 17:00 05/24/24 22:17 1 TAB Docusate Sodium 100 mg BIDPRN PRN PO 05/22/24 17:00 05/24/24 22:17 100 MG Acetaminophen 650 mg Q6HP PRN PO 05/22/24 17:00 Thyroid 30 mg DAILY PO 05/23/24 10:00 05/25/24 09:09 30 MG Ceftriaxone Sodium 50 ml @ 100 mls/hr DAILY@09 IV 05/24/24 09:00 05/25/24 09:09 100 MLS/HR Laboratory Results Laboratory Tests 05/24/24 05:54 Urinalysis Test 05/22/24 23:50 Urine Color Straw (Yellow) Urine Clarity Turbid (Clear) H Urine pH 6.5 (5.0-9.0) Urine Specific [place] 1.012 (1.001-1.035) Urine Protein Negative (Negative) Urine Ketones Trace (Negative) Urine Blood Negative /uL (Negative) Urine Nitrite 2+ (Negative) H Urine Bilirubin Negative (Negative) Urine Urobilinogen Normal mg/dL (Negative) Urine Leukocyte Esterase 3+ /uL (Negative) Urine RBC <1 /hpf (0 - 4) Urine WBC 47 /hpf (0 - 5) Urine Squamous Epithelial Cells Few /hpf (<5) Urine Bacteria Few /hpf (None Seen) H Urine Yeast (Budding) Occasional /hpf (None Urine Glucose Normal mg/dL (Normal) Microbiology Microbiology Date/Time Source Procedure Growth Status 05/22/24 23:50 Urine - Midstream Clean Catch Urine Culture - Final Complete Labs and/or images reviewed: Labs reviewed by me, Image(s) reviewed by me Assessment/Plan Assessment/Plan syncope- secondary to meds/viral illness/r/o arrythmia- monitor/echo pending facial trauma evaluate uti treat/had cysto last year/f/by urology/ hypothyroidism-treat Plan discussed with: Patient, Other Date of Service: May 24, 2024 Billing Provider: ASHISH BOWEN MD Common Visit Codes: [id number] INP/OBS CARE(MOD) ASHISH BOWEN MD May 25, 2024 16:58
--- NOTE | 2024-05-25 17:25 | DVHDS2 ---
Discharge Summary Date of Admission May 22, 2024 at 16:52 Date of Discharge: May 26, 2024 Admitting Diagnosis syncope Wounds: laceration face-2 Labs/Diagnostic Data: Laboratory Results Test 05/24/24 05:54 05/23/24 05:12 05/22/24 23:50 05/22/24 14:10 White Blood Count 3.2 10^3/uL (4.4-10.8) Red Blood Count 3.81 10^6/uL (4.0-5.20) Hemoglobin 11.0 g/dL (12.2-16.2) Hematocrit 32.7 % (36.0-46.0) Mean Corpuscular Volume 85.8 fL (80.0-100.0) Mean Corpuscular Hemoglobin 28.7 pg (28.0-32.0) Mean Corpuscular Hemoglobin Concent 33.5 g/dL (32.0-36.0) Red Cell Distribution Width 15.2 % (11.8-14.3) Platelet Count 152 10^3/uL (140-450) Mean Platelet Volume 9.6 fL (6.9-10.8) Neutrophils (%) (Auto) 38.6 % (37.0-80.0) Lymphocytes (%) (Auto) 46.6 % (10.0-50.0) Monocytes (%) (Auto) 11.8 % (0.0-12.0) Eosinophils (%) (Auto) 2.2 % (0.0-7.0) Basophils (%) (Auto) 0.8 % (0.0-2.0) Neutrophils # (Auto) 1.2 10 ^3/uL (1.6-8.6) Lymphocytes # (Auto) 1.5 10 ^3/uL (0.4-5.4) Monocytes # (Auto) 0.4 10 ^3/uL (0-1.3) Eosinophils # (Auto) 0.1 10 ^3/uL (0-0.8) Basophils # (Auto) 0 10 ^3/uL (0-0.2) Nucleated Red Blood Cells 0.0 % Sodium Level 138 mmol/L (136-145) Potassium Level 4.2 mmol/L (3.5-5.1) Chloride Level 107 mmol/L (98-107) Carbon Dioxide Level 25 mmol/L (20-31) Anion Gap 6 (5-15) Blood Urea Nitrogen 9 mg/dL (9-23) Creatinine 0.96 mg/dL (0.550-1.02) Glomerular Filtration Rate Calc 71 mL/min (>90) BUN/Creatinine Ratio 9.4 (10.0-20.0) Serum Glucose 105 mg/dL (74-106) Calcium Level 9.4 mg/dL (8.7-10.4) Total Bilirubin 0.3 mg/dL (0.2-1.0) Aspartate Amino Transferase (AST) 48 U/L (13-40) Alanine Aminotransferase (ALT) 44 U/L (7-40) Alkaline Phosphatase 158 U/L (46-116) Total Protein 6.1 g/dL (5.7-8.2) Albumin 3.9 g/dL (3.2-4.8) Hemoglobin A1c 5.1 % A1C (<5.7) Magnesium Level 1.9 mg/dL (1.6-2.6) Vitamin B12 Level 253 pg/mL (211-911) Urine Color Straw (Yellow) Urine Clarity Turbid (Clear) Urine pH 6.5 (5.0-9.0) Urine Specific [place] 1.012 (1.001-1.035) Urine Protein Negative (Negative) Urine Ketones Trace (Negative) Urine Blood Negative /uL (Negative) Urine Nitrite 2+ (Negative) Urine Bilirubin Negative (Negative) Urine Urobilinogen Normal mg/dL (Negative) Urine Leukocyte Esterase 3+ /uL (Negative) Urine RBC <1 /hpf (0 - 4) Urine WBC 47 /hpf (0 - 5) Urine Squamous Epithelial Cells Few /hpf (<5) Urine Bacteria Few /hpf (None Seen) Urine Yeast (Budding) Occasional /hpf (None Urine Glucose Normal mg/dL (Normal) Urine Opiates Screen Neg (NEGATIVE) Urine Fentanyl Screen Neg (NEGATIVE) Urine Barbiturates Screen Neg (NEGATIVE) Urine Phencyclidine Screen Neg (NEGATIVE) Urine Amphetamines Screen Neg (NEGATIVE) Urine Benzodiazepines Screen Neg (NEGATIVE) Urine Cocaine Screen Neg (NEGATIVE) Urine Cannabinoids Screen Neg (NEGATIVE) Troponin I High Sensitivity < 3 ng/L (</=34) Thyroid Stimulating Hormone (TSH) 5.45 uIU/mL (0.55-4.78) Other Laboratory Tests 05/24/24 05:54 Brief Hx & Hospital Course: pt was admitted for syncope /was seen and cleared by cardiology after normal echo and her monitor did not show any arrythmias pt had mildly elevated lft and had us as w/u patient also had mild pancytopenia from recent urti/cold which did improve during hoispital stay/she will f/u with pcp on this if her us is done tonite she wants to be called with the report- she has no abdominal symptoms and will respect her wishes Consults/Reason for consult cardiology ct head was normal- ct face showed nasal fracture- pt educated/reassured no indication for mri/ent at this time Operations or Procedures nil Condition at Discharge: Fair Final Diagnosis/Problems List syncope secondary to dehydration/meds nasal fracture laceration face facial contusion uti- better Discharge Disposition: Home Discharge Instruct/Medications Activity: No Restrictions, As Tolerated Medications: ciprofloxacin 500 mg twice daily Discharge Statement: "Patient was advised to return to the ER or call 911 if any headaches, dizziness, shortness of breath, chest pain, abdominal pain, bleeding, fevers, or worsening of medical condition. Patient was counseled about treatment plan, medications, possible side effects, patientverbalized understanding. All questions were answered to the best of my ability. This discharge took greater then 30 minutes in planning, reviewing documentation, counseling the patient, and discussing with other team members." ASSESSMENT ASSESSMENT Assessment Date of Service: May 25, 2023 Billing Provider: ASHISH BOWEN MD Common Visit Codes: [id number] INP/OBS CARE(MOD) ASHISH BOWEN MD May 25, 2024 17:25
[2024-05-25] MEDS ORDERED: CIPR500T4 PO (17:26)
--- NOTE | 2024-05-25 18:20 | DVH ---
RIGHT UPPER QUADRANT ABDOMINAL ULTRASOUND CLINICAL HISTORY: elevated lft COMPARISON: None TECHNIQUE: Grayscale and color Doppler ultrasound imaging of the right upper quadrant is performed. FINDINGS: Pancreas: Visualized portions appear grossly unremarkable. Liver: Coarsened hepatic echotexture. No discrete hepatic lesions identified. The portal vein appears patent. Gallbladder: No sizable, shadowing cholelithiasis. No gallbladder wall thickening. No sonographic mur phy's sign elicited. Common bile duct: Nondilated. Right Kidney: No hydronephrosis. Right kidney measures approximately 7.5 cm in length. This is smalle r in comparison to the left which measures approximately 10.4 cm in length. Both kidneys appear sligh tly echogenic with apparent cortical thinning on the right. This can be seen with medical renal disea se. Please correlate clinically. Subcentimeter echogenicity in the right kidney may represent a nonob structing calculus or other parenchymal/vascular calcification. Right upper quadrant Inferior vena cava: Visualized portions appear grossly patent. IMPRESSION: Coarsened hepatic echotexture. This is relatively nonspecific but can be seen with hepatitis, fibros is and various other metabolic conditions. Please correlate clinically. Renal findings as above.
[2024-05-25] MEDS: ACETAMINOPHEN 325 MG TAB PO PRN (18:26)
== END 2024-05-25 19:30 | disposition home or self-care (01) | DRG 422 ==
LOC: EDBD 13:12 → ER 13:12 → TELE 16:52 → TELE-E-ADS 23:42
PROVIDERS: ADMIT Nurse Practitioner Family; ATTEND Internal Medicine
DX: E86.0 Dehydration (principal); E06.3 Autoimmune thyroiditis; S00.83XA Contusion of other part of head, initial encounter; S02.2XXA Fracture of nasal bones, initial encounter for closed fracture; N39.0 Urinary tract infection, site not specified; F32.A Depression, unspecified; W18.39XA Other fall on same level, initial encounter; Y93.89 Activity, other specified; Y92.89 Other specified places as the place of occurrence of the external cause; Y99.8 Other external cause status; Z79.899 Other long term (current) drug therapy
CPT/HCPCS: 36415; 70450; 70486; 76705; 80048; 80053; 80307; 81001; 82607; 83036; 83735; 84443; 84484; 85025; 87086; 93005; 93306; 93886; 99291; G0378